=== PATIENT | male | born 1940 | race Caucasian/White ===

== ENCOUNTER 2016-10-24 22:49 | Inpatient (IN) | payer OTHER, MEDICARE ==
[~2016-10-24] VITALS: Ht 175.3 cm; Wt 99.4 kg
[~2016-10-24 22:49] MED LIST: ALPR0.5T99 PO; AMLO5TAB22 PO; ASPI81TA82 PO; ATOR80TA PO; CHOL1CAP6 PO; DICL75 PO; DOCU1CAP39 PO; HYDR10SO PO; PERC5TAB12 PO; SERT-129 PO; TAB-TAB PO; WAL-10TA2 PO
--- NOTE | 2016-10-24 23:13 | PD ---
HPI Chief Complaint: Neuro Symptoms/ Deficits Time Seen by Provider: 23:04 Travel History International Travel<30 days: No Contact w/Intl Traveler<30days: No Traveled to known affect area: No History of Present Illness HPI 75-year-old male was brought in by his for confusion. Patient started having confusion about 15 minutes prior to coming to the emergency room. Patient's states the patient started having coughing congestion since yesterday. Patient denies any headache. Patient denies any chest pain or shortness of breath. Patient denies abdominal pain. Patient denies any focal weakness and numbness of extremity. Patient was states the patient has generalized malaise and weakness this evening. Patient denies any nausea vomiting diarrhea. Patient denies any dysuria or frequency. Patient has history of hypertension, Parkinson disease. Patient has history of normal pressure hydrocephalus status post CLINICAL ACADEMIC ALLERGIST shunt placement. PFSH Past Medical History Arthritis: Yes (BACK) Asthma: No Autoimmune Disease: No Depression: Yes Cancer: No Cardiovascular Problems: No Chemotherapy: No COPD: No Cerebrovascular Accident: No Diabetes: No Diminished Hearing: No Endocrine: No Gastrointestinal Disorders: No GERD: No Genitourinary: No Headaches: No Hepatitis: No Hiatal Hernia: No Hypertension: No Immune Disorder: No Implanted Vascular Access Dvce: Yes Kidney Stones: No Musculoskeletal: Yes Neurologic: Yes (Hydocephuls ) Psychiatric: No Reproductive: No Respiratory: No Immunizations Current: Yes Migraines: No Radiation Therapy: No Renal Failure: No Seizures: No Sickle Cell Disease: No Sleep Apnea: No Thyroid Disease: No Triglycerides - High: Yes Ulcer: No Past Surgical History Abdominal Surgery: No AICD: No Arteriovenous Shunt: No Body Medical Devices: CLINICAL ACADEMIC ALLERGIST shunt placed Cardiac Surgery: No Ear Surgery: No Endocrine Surgery: No Eye Surgery: No Genitourinary Surgery: No Gynecologic Surgery: No Insulin Pump: No Joint Replacement: No Neurologic Surgery: No Oral Surgery: No Pacemaker: No Thoracic Surgery: No Other Surgery: Yes (R wrist and R knee ) Social History Alcohol Use: No Tobacco Use: No Substance Use: No Allergies-Medications (Allergen,Severity, Reaction): Coded Allergies: Codeine (Verified Allergy, Severe, ITCHING, 10/24/16) itching Reported Meds & Prescriptions Reported Meds & Active Scripts Active Diclofenac Sodium 75 Mg Tab 75 Mg PO BID PRN Percocet 5-325 mg (Oxycodone/Acetaminophen) 1 Tab 1 Tab PO Q6H PRN Hydrocodone/Acetaminophen 10 mg/325 mg 1 Tab Tab 1 Tab PO Q4H PRN Colace 100 Mg Cap (Docusate Sodium) 100 Mg Cap 100 Mg PO BID Reported Aspir-81 (Aspirin) 81 Mg Tab 81 Mg PO DAILY Atorvastatin 80 mg (Atorvastatin Calcium) 80 Mg Tab 80 Mg PO HS Loratadine 10 Mg Tab 10 Mg PO DAILY Vitamin D-3 (Cholecalciferol) 1,000 Unit Tab 5,000 Unit PO DAILY Multivitamin (Multivitamins) 1 Tab Tab 1 Tab PO DAILY@1600 Amlodipine Besylate 5 mg (Amlodipine Besylate) 5 Mg Tab 10 Tab PO DAILY Sertraline 100 mg (Sertraline HCl) 100 Mg Tab 150 Mg PO DAILY Xanax (Alprazolam) 0.5 Mg Tab 1 Mg PO HS Review of Systems General / Constitutional: Positive: Fever Eyes: No: Visual changes HENT: No: Headaches Cardiovascular: No: Chest Pain or Discomfort Respiratory: Positive: Cough, No: Shortness of Breath Gastrointestinal: No: Abdominal Pain Genitourinary: No: Dysuria Musculoskeletal: No: Pain Skin: No Rash Neurologic: No: Weakness Psychiatric: No: Depression Endocrine: No: Polydipsia Hematologic/Lymphatic: No: Easy Bruising Physical Exam Narrative GENERAL: Well-nourished, well-developed patient. SKIN: Warm and dry. HEAD: Normocephalic. CLINICAL ACADEMIC ALLERGIST shunt palpable right side the scalp. EYES: No scleral icterus. No injection or drainage. Pupil 2 mm equal reactive. NECK: Supple, trachea midline. No JVD or lymphadenopathy. CARDIOVASCULAR: Regular rate and rhythm without murmurs, gallops, or rubs. RESPIRATORY: Breath sounds equal bilaterally. No accessory muscle use. GASTROINTESTINAL: Abdomen soft, non-tender, nondistended. MUSCULOSKELETAL: No cyanosis, or edema. BACK: Nontender without obvious deformity. No CVA tenderness. Neurologic exam: Patient's lethargic. Patient knows his name. Patient does not know where he is or today's date. Patient moves all extremity well. No obvious focal neurological deficit. Data Data Last Documented VS Vital Signs Date Time Temp Pulse Resp B/P Pulse Ox O2 Delivery O2 Flow Rate FiO2 10/24/16 23:20 102.3 94 20 101/65 98 Orders Electrocardiogram (10/24/16 23:04) Complete Blood Count With Diff (10/24/16 23:04) Comprehensive Metabolic Panel (10/24/16 23:04) Creatine Kinase (Cpk) (10/24/16 23:04) Troponin I (10/24/16 23:04) Prothrombin Time / Inr (Pt) (10/24/16 23:04) Act Partial Throm Time (Ptt) (10/24/16 23:04) Blood Culture (10/24/16 23:) Urinalysis - C+S If Indicated (10/24/16 23:04) Thyroid Stimulating Hormone (10/24/16 23:04) Influenzae A/B Antigen (10/24/16 23:04) Chest, Single Ap (10/24/16 23:04) Ct Brain W/O Iv Contrast(Rout) (10/24/16 23:04) Iv Access Insert/Monitor (10/24/16 23:04) Ecg Monitoring (10/24/16:04) Oximetry (10/24/16 23:04) Urinary Catheter Insert/Apply (10/24/16 23:04) Lactic Acid (10/24/16 23:04) Sodium Chlor 0.9% 1000 Ml Inj (Ns 1000 M (10/24/16 23:15) Sodium Chlor 0.9% 1000 Ml Inj (Ns 1000 M (10/24/16 23:15) Piperacil-Tazo 3.375 Gm Premix (Zosyn 3. (10/24/16 23:15) Vancomycin Inj (Vancomycin Inj) (10/24/16 23:15) Acetaminophen (Tylenol) (10/24/16 23:30) Lactic Acid (10/24/16 23:55) Labs Laboratory Tests Test 10/24/16 23:10 White Blood Count 11.9 TH/MM3 Red Blood Count 4.65 MIL/MM3 Hemoglobin 13.9 GM/DL Hematocrit 40.7 % Mean Corpuscular Volume 87.6 FL Mean Corpuscular Hemoglobin 30.0 PG Mean Corpuscular Hemoglobin 34.3 % Concent Red Cell Distribution Width 12.5 % Platelet Count 261 TH/MM3 Mean Platelet Volume 8.5 FL Neutrophils (%) (Auto) 72.3 % Lymphocytes (%) (Auto) 12.6 % Monocytes (%) (Auto) 6.8 % Eosinophils (%) (Auto) 8.0 % Basophils (%) (Auto) 0.3 % Neutrophils # (Auto) 8.6 TH/MM3 Lymphocytes # (Auto) 1.5 TH/MM3 Monocytes # (Auto) 0.8 TH/MM3 Eosinophils # (Auto) 1.0 TH/MM3 Basophils # (Auto) 0.0 TH/MM3 CBC Comment DIFF FINAL Differential Comment Sodium Level 138 MEQ/L Potassium Level 4.1 MEQ/L Chloride Level 104 MEQ/L Carbon Dioxide Level 25.1 MEQ/L Anion Gap 9 MEQ/L Blood Urea Nitrogen 15 MG/DL Creatinine 1.10 MG/DL Estimat Glomerular Filtration 66 ML/MIN Rate Random Glucose 124 MG/DL Calcium Level 8.5 MG/DL Total Bilirubin 0.4 MG/DL Aspartate Amino Transf 9 U/L (AST/SGOT) Alanine Aminotransferase 23 U/L (ALT/SGPT) Total Protein 7.0 GM/DL Albumin 3.9 GM/DL MDM Medical Decision Making Medical Screen Exam Complete: Yes Emergency Medical Condition: Yes Medical Record Reviewed: Yes Interpretation(s) 12 PM. CBC WBC 11.9. 72 neutrophil. Differential Diagnosis Differential diagnosis including viral syndrome, sepsis, electrolyte imbalance, dehydration, TIA, CVA, shunt malfunction. Narrative Course 75-year-old male with fever and mental confusion. Patient has history of normal pressure hydrocephalus status post CLINICAL ACADEMIC ALLERGIST shunt placement. Normal saline solution 2 L IV bolus. Zosyn 3.375 g IV given. Vancomycin 1 g IV given. Diagnosis Primary Impression: Sepsis Qualified Code: A41.9 - Sepsis, due to unspecified organism Westley France MD Oct 24, 2016 23:13
[2016-10-24] MEDS ORDERED: VANCOMYCIN INJ 1,000 MG in SODIUM CHLOR 0.9% 250 ML INJ 250 ML IV ONE (23:15)
[2016-10-24] MEDS ORDERED: PIPERACIL-TAZO 3.375 GM PREMIX 50 ML IV ONE (23:15)
[2016-10-24] MEDS ORDERED: SODIUM CHLOR 0.9% 1000 ML INJ 1,000 ML IV ONE ×2 (23:15)
[2016-10-24 23:20] VITALS: BP 101/65; PULSE 94; RESP 20; TEMP 102.3; O2SAT 98
[2016-10-24 23:23] LABS: AUTOMATED NEUTROPHIL # 8.6 TH/MM3 (1.8-7.7); BASOPHIL % 0.3 % (0.0-2.0); HEMATOCRIT 40.7 % (39.0-51.0); HEMO FLAGS DIFF FINAL; LYMPH % 12.6 % (9.0-44.0); LYMPHOCYTE # 1.5 TH/MM3 (1.0-4.8); MEAN CELL VOLUME 87.6 FL (80.0-100.0); MEAN CORPUSCULAR HGB CONC 34.3 % (32.0-36.0); MONO % 6.8 % (0.0-8.0); NEUT % 72.3 % (16.0-70.0); PLATELET COUNT 261 TH/MM3 (150-450); RED BLOOD COUNT 4.65 MIL/MM3 (4.50-5.90); RED CELL DISTRIBUTION WIDTH 12.5 % (11.6-17.2); WHITE BLOOD COUNT 11.9 TH/MM3 (4.0-11.0)
[2016-10-24] MEDS ORDERED: ACETAMINOPHEN 325 MG TAB PO ONE (23:30)
[2016-10-24 23:36] LABS: CHLORIDE 104 MEQ/L (98-107); POTASSIUM 4.1 MEQ/L (3.5-5.1); SODIUM (NA) 138 MEQ/L (136-145)
[2016-10-24 23:39] LABS: ANION GAP 9 MEQ/L (5-15); BICARBONATE 25.1 MEQ/L (21.0-32.0); BLOOD UREA NITROGEN 15 MG/DL (7-18)
[2016-10-24 23:42] LABS: ALT (GPT) 23 U/L (12-78); AST (GOT) 9 U/L (15-37); GLOMERULAR FILTRATION RATE 66 ML/MIN (>89)
[2016-10-24 23:44] LABS: TOTAL BILIRUBIN ADULT 0.4 MG/DL (0.2-1.0)
[2016-10-24 23:45] LABS: ALKALINE PHOSPHATASE 104 U/L (45-117)
[2016-10-25] VITALS (14 sets, daily range): BP systolic 114–162; BP diastolic 68–89; PULSE 73–99; RESP 20–22; TEMP 97.7–99; O2SAT 91–98
[2016-10-25 00:01] LABS: APTT (PATIENT) 29.9 SEC (24.3-30.1); PROTHROMBIN TIME - PATIENT 10.6 SEC (9.8-11.6)
[2016-10-25 00:10] LABS: CREATINE KINASE 76 U/L (39-308)
--- NOTE | 2016-10-25 00:31 | RADHPO ---
EXAM DATE/TIME: 10/24/2016 23:45 [facility] COMPARISON: No previous studies available for comparison. INDICATIONS : Cough and congestion. MEDICAL HISTORY : Cerebrovascular disease. Parkinsons disease. SURGICAL HISTORY : MANAGER FINE DINING shunt ENCOUNTER: Initial ACUITY: 1 day PAIN SCORE: 7/10 LOCATION: Bilateral chest FINDINGS: Single AP view of the chest. Ventriculoperitoneal catheter seen extending through the right side of t he chest. The lungs are clear. Cardiomediastinal silhouette within normal limits. No evidence of pleu ral effusion or pneumothorax. CONCLUSION: No acute cardiopulmonary disease identified. Law Reynolds MD on October 25, 2016 at 0:29 Board Certified Radiologist. This report was verified electronically.
--- NOTE | 2016-10-25 00:37 | RADHPO ---
EXAM DATE/TIME: 10/24/2016 23:39 [facility] COMPARISON: CT BRAIN W/O CONTRAST, October 20, 2014, 17:52. INDICATIONS : Altered mental status. RADIATION DOSE: 59 CTDIvol (mGy) MEDICAL HISTORY : Parkinson's. Cerebrovascular disease. SURGICAL HISTORY : LAB AIDE shunt. ENCOUNTER: Initial ACUITY: 1 day PAIN SCALE: 0/10 LOCATION: cranial TECHNIQUE: Multiple contiguous axial images were obtained of the head. Using automated exposure control and adj ustment of the mA and/or kV according to patient size, radiation dose was kept as low as reasonably a chievable to obtain optimal diagnostic quality images. FINDINGS: CEREBRUM: Right-sided ventriculostomy catheter in place with the tip in the right lateral ventricle. The ventri cles are mildly diffusely prominent but unchanged when compared to 10/20/2014. No evidence of midline s hift, mass lesion, hemorrhage or acute infarction. No extra-axial fluid collections are seen. Enceph alomalacia right temporal lobe unchanged. POSTERIOR FOSSA: The cerebellum and brainstem are intact. The 4th ventricle is midline. The cerebellopontine angle i s unremarkable. EXTRACRANIAL: Polyp or retention cyst in the right maxillary sinus. Diffuse opacification of the ethmoid sinuses. SKULL: The calvaria is intact. No evidence of skull fracture. CONCLUSION: 1. Right-sided ventriculostomy catheter remains in place. Ventricles unchanged in size. 2. Ethmoid sinus disease and right sided maxillary sinus polyp or retention cyst. 3. 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 Law Reynolds MD on October 25, 2016 at 0:32 Board Certified Radiologist. This report was verified electronically.
[2016-10-25 01:26] LABS: BLOOD, URINE SMALL (NEG); GLUCOSE,URINE NEG (NEG); KETONE, URINE NEG (NEG); NITRITE,URINE NEG (NEG)
[2016-10-25 01:39] LABS: URINE COLOR YELLOW (YELLW/STRAW)
[2016-10-25 01:41] LABS: MUCUS URINE OCC /lpf (OCC); SQUAMOUS EPITHELIAL CELL URINE 0-5 /hpf (0-5); WBC, URINE 0-2 /hpf (0-5)
[2016-10-25 01:42] LABS: COMMENT (UR) CULT NOT INDICATED; CULTURE IF INDICATED CULT NOT INDICATED
[2016-10-25] MEDS ORDERED: ATOR1TAB18 PO (01:45)
[2016-10-25] MEDS ORDERED: TIZA4CAP3 PO (01:45)
[2016-10-25] MEDS ORDERED: SERT-129 PO (01:45)
[2016-10-25] MEDS ORDERED: ASPI81CH CHEW (01:45)
[2016-10-25] MEDS ORDERED: MUCI600T PO (01:45)
[2016-10-25] MEDS ORDERED: AMLO10TA2 PO (01:45)
[2016-10-25] MEDS ORDERED: VITA500030 CHEW (01:45)
[2016-10-25] MEDS ORDERED: ALPR0.5T3 PO (01:45)
[2016-10-25] MEDS ORDERED: LEVOTAB PO (01:45)
[2016-10-25] MEDS ORDERED: HYDR-3583 PO (01:45)
[2016-10-25] MEDS ORDERED: ENOXAPARIN SODIUM 100 MG/ML SYRINGE SQ ONE (02:15)
[2016-10-25] MEDS ORDERED: MAGNESIUM HYDROXIDE SUSP 30 ML CUP PO PRN (03:15)
[2016-10-25] MEDS ORDERED: NALOXONE HCL 0.4 MG/ML AMP IV PRN (03:15)
[2016-10-25] MEDS ORDERED: ACETAMINOPHEN 325 MG TAB PO PRN (03:15)
[2016-10-25] MEDS ORDERED: ONDANSETRON HCL 4 MG/2 ML VIAL IVP PRN (03:15)
[2016-10-25] MEDS: SODIUM CHLOR 0.9% 1000 ML INJ 1,000 ML IV SCH ×2 (03:47→17:21)
[2016-10-25] MEDS: SERTRALINE HCL 100 MG TAB PO SCH (08:40)
[2016-10-25] MEDS: ASPIRIN 81 MG CHEW TAB CHEW SCH (08:40)
--- NOTE | 2016-10-25 13:17 | HHI.HP ---
[facility] Service [place] [facility] Primary Care Physician Phyllis Morales Do, MD Admission Diagnosis Febrile Illness, AMS, NSTEMI Diagnoses: (1) Sepsis Diagnosis: Principal (2) Altered mental status Diagnosis: Principal (3) Elevated troponin I level Diagnosis: Principal Chief Complaint: confusion Travel History International Travel<30 Days: No Contact w/Intl Traveler <30 Da: No Traveled to Known Affected Are: No Sepsis Criteria SIRS Criteria (2 or more): Temp > 100.9 or < 96.8, Heart rate over 90, RR > 20 or PaCO2 < 32 Criteria Outcome: Meets SIRS criteria History of Present Illness 75-year-old male with history of hydrocephalus, hypertension, hyperlipidemia, depression and anxiety, and arthritis presents with complaint of confusion. Patient states he was confused last night and he thought he overmedicated himself. He takes hydrocodone and Xanax but tells me he only took one tablet of each. When I asked the patient why he thought he overmedicated, he stated because he had not eaten anything. Patient's confirmed with RN that the patient did not overmedicate. The patient does admit to a productive cough he has had for the last 4 days but states the sputum is clear. He denies any headache or dizziness, altered speech or focal weakness, or new visual changes. He denies any fevers or chills, ear ache, sore throat, neck or back pain, rashes, chest pain, shortness of breath, abdominal pain, nausea, vomiting or diarrhea. He denies any dysuria or hematuria although there's pink urine in the urinal at bedside likely from traumatic Bray which has since been removed. Patient denies having hematuria prior to arrival. Review of Systems Constitutional: DENIES: Fever, Chills, Dizziness Eyes: DENIES: Blurred vision Ears, nose, mouth, throat: DENIES: Throat pain, Ear Pain Respiratory: COMPLAINS OF: Cough, Sputum production, DENIES: Shortness of breath Cardiovascular: DENIES: Chest pain Gastrointestinal: DENIES: Abdominal pain, Diarrhea, Nausea, Vomiting Genitourinary: DENIES: Dysuria Musculoskeletal: DENIES: Back pain, Neck pain Integumentary: DENIES: Rash Neurologic: DENIES: Headache, Localized weakness, Speech Problems Psychiatric: COMPLAINS OF: Confusion Past Family Social History Past Medical History Hydrocephalus Hypertension Hyperlipidemia Arthritis spine Past Surgical History BOMBSIGHT SPECIALIST shunt placement 3 years ago Tendon surgery right wrist; surgery on finger Arthroscopic surgery right knee Reported Medications Tizanidine (Tizanidine HCl) 4 Mg Cap 4 Mg PO TID Vitamin D3 (Cholecalciferol) 5,000 Unit Chew 5,000 Units CHEW DAILY Mucinex ER 12 HR (Guaifenesin) 600 Mg Jami 600 Mg PO BID Levocetirizine 5 Mg Tab 5 Mg PO DAILY Sertraline (Sertraline HCl) 100 Mg Tab 100 Mg PO DAILY Hydrocodone-Acetaminophen 10-325 mg Tab 10 Tab PO Q6H PRN Atorvastatin (Atorvastatin Calcium) 80 Mg Tab 80 Mg PO HS Aspirin 81 Mg Chew 81 Mg CHEW DAILY Amlodipine (Amlodipine Besylate) 10 Mg Tab 10 Mg PO DAILY Alprazolam 0.5 Mg Tab 0.5 Mg PO HS PRN Allergies: Coded Allergies: Codeine (Verified Allergy, Severe, ITCHING, 10/24/16) itching Family History Mother: age 75 from [place]; brain cancer. Father: Cardiac bypass surgery, first at age 40, then again in his 60's. No siblings. Social History Denies current alcohol use but states he was a heavy drinker 30-40 years ago drinking a gallon per week. No current tobacco use. States he chewed tobacco 30+ years ago. Denies history of illicit drug use. Physical Exam Vital Signs Vital Signs Date Time Temp Pulse Resp B/P Pulse Ox O2 Delivery O2 Flow Rate FiO2 10/25/16 13:07 91 21 10/25/16 12:00 98.2 90 22 162/83 97 10/25/16 08:00 98.9 87 22 159/84 94 10/25/16 05:34 73 20 143/76 93 Nasal Cannula 2 10/25/16 05:06 97.7 10/25/16 04:00 97.9 74 20 156/89 98 10/25/16 03:45 76 20 134/83 98 10/25/16 02:15 99.0 74 20 114/80 98 10/25/16 01:21 93 Nasal Cannula 2.00 10/25/16 01:21 99.0 78 20 121/68 93 Nasal Cannula 2 10/25/16 01:10 20 98 10/25/16 00:15 78 20 123/68 98 10/24/16 23:20 102.3 94 20 101/65 98 Physical Exam GENERAL: This is a pleasant well-nourished, well-developed patient, in no apparent distress. SKIN: No rashes, ecchymoses or lesions. Warm and dry. HEAD: Atraumatic. Normocephalic. EYES: Pupils equal round and reactive. Extraocular motions intact. No scleral icterus. No injection or drainage. ENT: Uvula midline. Airway patent. NECK: Trachea midline. Full flexion, extension, and lateral ROM of the neck. No cervical spine tenderness. CARDIOVASCULAR: Regular rate and rhythm without murmurs, gallops, or rubs. RESPIRATORY: Clear to auscultation. Breath sounds equal bilaterally. No wheezes , rales, or rhonchi. GASTROINTESTINAL: Abdomen soft, non-tender, nondistended. No guarding. MUSCULOSKELETAL: No lower extremity edema bilaterally. BACK: No CVA tenderness bilaterally. NEUROLOGICAL: Awake, alert, and oriented. Cranial nerves II through XII intact. Motor and sensory grossly within normal limits. Five out of 5 muscle strength in bilateral arms and leg. Normal speech. Laboratory Laboratory Tests Test 10/24/16 10/24/16 10/25/16 10/25/16 23:10 23:55 00:33 05:25 White Blood Count 11.9 Red Blood Count 4.65 Hemoglobin 13.9 Hematocrit 40.7 Mean Corpuscular Volume 87.6 Mean Corpuscular Hemoglobin 30.0 Mean Corpuscular Hemoglobin 34.3 Concent Red Cell Distribution Width 12.5 Platelet Count 261 Mean Platelet Volume 8.5 Neutrophils (%) (Auto) 72.3 Lymphocytes (%) (Auto) 12.6 Monocytes (%) (Auto) 6.8 Eosinophils (%) (Auto) 8.0 Basophils (%) (Auto) 0.3 Neutrophils # (Auto) 8.6 Lymphocytes # (Auto) 1.5 Monocytes # (Auto) 0.8 Eosinophils # (Auto) 1.0 Basophils # (Auto) 0.0 CBC Comment DIFF FINAL Differential Comment Prothrombin Time 10.6 Prothromb Time International 1.0 Ratio Activated Partial 29.9 Thromboplast Time Sodium Level 138 Potassium Level 4.1 Chloride Level 104 Carbon Dioxide Level 25.1 Anion Gap 9 Blood Urea Nitrogen 15 Creatinine 1.10 Estimat Glomerular Filtration 66 Rate Random Glucose 124 Calcium Level 8.5 Total Bilirubin 0.4 Aspartate Amino Transf 9 (AST/SGOT) Alanine Aminotransferase 23 (ALT/SGPT) Alkaline Phosphatase 104 Total Creatine Kinase 76 69 Troponin I 0.26 0.25 Total Protein 7.0 Albumin 3.9 Thyroid Stimulating Hormone 0.563 3rd Gen Lactic Acid Level 1.5 Urine Color YELLOW Urine Turbidity CLEAR Urine pH 6.0 Urine Specific [place] 1.008 Urine Protein NEG Urine Glucose (UA) NEG Urine Ketones NEG Urine Occult Blood SMALL Urine Nitrite NEG Urine Bilirubin NEG Urine Leukocyte Esterase NEG Urine RBC 4-9 Urine WBC 0-2 Urine Squamous Epithelial 0-5 Cells Urine Mucus OCC Microscopic Urinalysis Comment CULT NOT INDICATED Test 10/25/16 11:00 Total Creatine Kinase 77 Troponin I 0.25 Date/Time Procedure Status Source Growth 10/24/16 23:30 Influenza Types A,B Antigen (PRITI) - Final Complete Nasal Washing NEGATIVE FOR FLU A AND B ANTIGEN.... 10/24/16 23:10 Aerobic Blood Culture - Preliminary Resulted Blood Peripheral NO GROWTH IN 1 DAY 10/24/16 23:10 Anaerobic Blood Culture - Preliminary Resulted Blood Peripheral NO GROWTH IN 1 DAY Result Diagram: 10/24/16 2310 10/24/16 2310 Assessment and Plan Problem List: (1) Sepsis ICD Code: A41.9 Status: Acute (2) Elevated troponin I level ICD Code: R74.8 Status: Acute (3) NPH (normal pressure hydrocephalus) ICD Code: G91.2 Status: Acute (4) Toxic metabolic encephalopathy ICD Code: G92 Status: Acute Assessment and Plan 75-year-old male with: Sepsis: Fever 102.3 rectal. Heart rate 94. Respiratory rate 22. Mild leucocytosis. Suspected source of infection is CSF infection in patient with shunt. Lactic acid is normal. Influenza negative. Chest x-ray personally interpreted without evidence of pneumonia. UA negative for infection. -Follow blood cultures. NGTD. -Patient received one dose of vancomycin and Zosyn in the ED. Antibiotics as below. -IVF -Telemetry Toxic, metabolic encephalopathy: Confusion last night although patient now oriented. Patient has hydrocephalus with BOMBSIGHT SPECIALIST shunt placed [address] brain personally interpreted with BOMBSIGHT SPECIALIST shunt; encephalomalacia R temporal lobe. -Will perform LP to evaluate for CSF infection. -Will start ceftriaxone 2 g every 12 hours and Acyclovir 10 mg/kg IV q8h to cover for bacterial meningitis and HSV encephalitis. Elevated troponin: 0.26-->0.25-->0.25. No report of chest pain or SOB. Cr normal. EKGs 2 personally interpreted with normal sinus rhythm and no evidence of ischemia. -Repeat EKG and troponin at 1700 hours -Echo -Lexiscan tomorrow am. NPO after midnight. -Hold aspirin for LP. HTN: Continue home amlodipine. -Enalapril prn SBP >160 DBP >90 HLD: Continue statin Anxiety/Depression: Continue Xanax as it is low dose once daily. Continue sertraline. Arthritis: Hold muscle relaxant and [place] so as not to sedate or alter patient. DVT prevention: Hold Lovenox for LP. TEDs/SCDs. Written by Velma Hays PA-C acting as scribe for Dr. Gama on 10/25/16 at ~ 1245. I, Dr. Eleuterio Gama personally performed the history, physical exam, and medical decision making; and confirmed the accuracy of the information in the transcribed note. Authenticated by Dr. Eleuterio Gama on 10/25/16 at 12:45PM. Code Status Full code Discussed Condition With patient Physician Certification 2 Midnight Certification Type: Admission for Inpatient Services Order for Inpatient Services The services are ordered in accordance with Medicare regulations or non- Medicare payer requirements, as applicable. In the case of services not specified as inpatient-only, they are appropriately provided as inpatient services in accordance with the 2-midnight benchmark. Estimated LOS (days): 2 days is the estimated time the patient will need to remain in the hospital, assuming treatment plan goals are met and no additional complications. Post-Hospital Plan: Home Problem Qualifiers (1) Sepsis: Qualified Code: A41.9 - Sepsis, due to unspecified organism Velma Hays Oct 25, 2016 13:17 Eleuterio Gama MD Oct 25, 2016 16:02
[2016-10-25] MEDS ORDERED: ENALAPRILAT 1.25 MG/ML VIAL IV PUSH PRN (14:00)
[2016-10-25] MEDS ORDERED: ENOXAPARIN SODIUM 100 MG/ML SYRINGE SQ SCH (14:00)
[2016-10-25] MEDS: cefTRIAXone INJ 2,000 MG in SODIUM CHLORIDE 0.9% INJ 100 ML IV SCH (14:18)
--- NOTE | 2016-10-25 14:59 | EKG ---
Date Performed: 10/24/2016 Time Performed: 23:11:26 PTAGE: 75 years EKG: Sinus rhythm Normal ECG Compared to prior tracing no significant change PREVIOUS TRACING : 02/19/2012 18.05 DOCTOR: Valerie Rodgers Interpretating Date/Time 10/25/2016 14:52:23
--- NOTE | 2016-10-25 14:59 | EKG ---
Date Performed: 10/25/2016 Time Performed: 05:24:10 PTAGE: 75 years EKG: Sinus rhythm with borderline 1st degree A-V block Borderline ECG Compared to prior tracing no significant change PREVIOUS TRACING : 10/24/2016 23.11 DOCTOR: Valerie Rodgers Interpretating Date/Time 10/25/2016 14:52:31
[2016-10-25] MEDS: ACYCLOVIR INJ 1,000 MG in SODIUM CHLORIDE 0.9% INJ 150 ML IV SCH ×2 (17:04→23:23)
[2016-10-25] MEDS: ATORVASTATIN 40 MG TAB PO SCH (20:48)
[2016-10-25] MEDS: ALPRAZolam 0.5 MG TAB PO PRN (23:25)
[2016-10-26] VITALS (9 sets, daily range): BP systolic 137–161; BP diastolic 83–90; PULSE 79–96; RESP 18; TEMP 95.7–99; O2SAT 91–96
[2016-10-26] MEDS: cefTRIAXone INJ 2,000 MG in SODIUM CHLORIDE 0.9% INJ 100 ML IV SCH ×2 (01:51→13:31)
[2016-10-26 06:15] LABS: AUTOMATED NEUTROPHIL # 5.6 TH/MM3 (1.8-7.7); BASOPHIL % 0.3 % (0.0-2.0); EOSINOPHIL # 0.3 TH/MM3 (0-0.4); EOSINOPHIL % 4.1 % (0.0-4.0); HEMATOCRIT 41.1 % (39.0-51.0); HEMO FLAGS DIFF FINAL; LYMPH % 18.6 % (9.0-44.0); LYMPHOCYTE # 1.6 TH/MM3 (1.0-4.8); MEAN CORPUSCULAR HEMOGLOBIN 29.4 PG (27.0-34.0); MEAN CORPUSCULAR HGB CONC 33.5 % (32.0-36.0); MONO % 10.4 % (0.0-8.0); NEUT % 66.6 % (16.0-70.0); PLATELET COUNT 249 TH/MM3 (150-450); RED BLOOD COUNT 4.67 MIL/MM3 (4.50-5.90); RED CELL DISTRIBUTION WIDTH 12.8 % (11.6-17.2); WHITE BLOOD COUNT 8.4 TH/MM3 (4.0-11.0)
[2016-10-26 06:33] LABS: BICARBONATE 25.4 MEQ/L (21.0-32.0); POTASSIUM 3.2 MEQ/L (3.5-5.1)
[2016-10-26] MEDS: SODIUM CHLOR 0.9% 1000 ML INJ 1,000 ML IV SCH ×2 (07:39→22:08)
[2016-10-26] MEDS: ASPIRIN 81 MG CHEW TAB CHEW SCH (08:15)
[2016-10-26] MEDS: ACYCLOVIR INJ 1,000 MG in SODIUM CHLORIDE 0.9% INJ 150 ML IV SCH ×2 (08:15→17:50)
[2016-10-26] MEDS: SERTRALINE HCL 100 MG TAB PO SCH (08:15)
--- NOTE | 2016-10-26 09:26 | HHI.PR ---
Subjective Remarks Follow-up sepsis/elevated troponin I/toxic metabolic encephalopathy 10/26/16-patient seen and examined, alert and oriented 2. Currently afebrile, nothing by mouth and no acute event overnight Objective Vitals Vital Signs Date Time Temp Pulse Resp B/P Pulse Ox O2 Delivery O2 Flow Rate FiO2 10/26/16 08:43 95.7 84 18 161/89 92 10/26/16 04:00 96.9 79 18 137/83 93 10/26/16 00:00 98.3 96 18 159/90 96 10/25/16 21:00 89 10/25/16 20:05 95 21 10/25/16 20:00 99.0 94 20 149/79 93 10/25/16 16:00 98.0 99 22 151/89 95 10/25/16 13:07 91 21 10/25/16 12:00 98.2 90 22 162/83 97 I/O 10/25/16 10/25/16 10/25/16 10/26/16 10/26/16 10/26/16 07:00 15:00 23:00 07:00 15:00 23:00 Intake Total 2350 ml 600 ml 680 ml 1020 ml Output Total 2200 ml 1550 ml 500 ml Balance 150 ml -950 ml 680 ml 520 ml Intake Oral 600 ml 680 ml 120 ml IV Total 2350 ml 900 ml Output Urine Total 2200 ml 1550 ml 500 ml # Voids 3 # Bowel Movements 1 1 Result Diagram: 10/26/16 0509 10/26/16 0509 Objective Remarks GENERAL: NAD SKIN: Warm and dry. HEAD: Normocephalic. EYES: No scleral icterus. No injection or drainage. NECK: Supple, trachea midline. No JVD or lymphadenopathy. CARDIOVASCULAR: Regular rate and rhythm without murmurs, gallops, or rubs. RESPIRATORY: Breath sounds equal bilaterally. No accessory muscle use. GASTROINTESTINAL: Abdomen soft, non-tender, nondistended. MUSCULOSKELETAL: No cyanosis, or edema. BACK: Nontender without obvious deformity. No CVA tenderness. A/P Problem List: (1) Sepsis ICD Code: A41.9 Status: Acute (2) Elevated troponin I level ICD Code: R74.8 Status: Acute (3) NPH (normal pressure hydrocephalus) ICD Code: G91.2 Status: Acute (4) Toxic metabolic encephalopathy ICD Code: G92 Status: Acute Assessment and Plan 75-year-old male with: Sepsis: Suspected source of infection is CSF infection in patient with shunt. Currently on Rocephin and acyclovir pending CSF and culture report Toxic, metabolic encephalopathy: Resolved. Patient has hydrocephalus with PERSONNEL ADVISER shunt placed [address] brain with PERSONNEL ADVISER shunt; encephalomalacia R temporal lobe. LP pending continue with current antibiotics including ceftriaxone 2 g every 12 hours and Acyclovir 10 mg/kg IV q8h to cover for bacterial meningitis and HSV encephalitis. Elevated troponin: 0.26-->0.25-->0.25. No report of chest pain or SOB. Cr normal. EKGs with normal sinus rhythm and no evidence of ischemia. Plan for Lexiscan today pending 2-D echo. Currently on statin. Continue to hold aspirin secondary to plan for LP HTN: Labile BP Continue home amlodipine and add hydralazine when necessary. HLD: Continue statin Anxiety/Depression: Continue Xanax and sertraline. Arthritis: Hold muscle relaxant and [place] DVT prevention: Hold Lovenox for LP. TEDs/SCDs. Problem Qualifiers (1) Sepsis: Qualified Code: A41.9 - Sepsis, due to unspecified organism Eleuterio Gama MD Oct 26, 2016 09:26
[2016-10-26] MEDS ORDERED: hydrALAZINE HCL 25 MG TAB PO PRN (09:30)
[2016-10-26] MEDS ORDERED: REGADENOSON INJ 0.4 MG/5 ML SYR IV ONE (09:53)
[2016-10-26] MEDS ORDERED: POTASSIUM CHLORIDE 10 MEQ CONTROLLED RELEASE TAB PO ONE (12:00)
--- NOTE | 2016-10-26 12:08 | RADHPO ---
EXAM DATE/TIME: 10/26/2016 10:24 [place] COMPARISON: No previous studies available for comparison. INDICATIONS : Confusion, coughing and weakness. Elevated troponins. Angina. DOSE: 31.1 mCi Tc99m Myoview at stress. 10.2 mCi Tc99m Myoview at rest. 0.4 mg Lexiscan STRESS SYMPTOMS: None noted. EJECTION FRACTION: > 70% MEDICAL HISTORY : Myocardial infarction. Hypercholesterolemia. Hypertension. Parkinson's disease. SURGICAL HISTORY : Brain stent. ENCOUNTER: Initial ACUITY: 1 day PAIN SCALE: 0/10 LOCATION: chest TECHNIQUE: The patient underwent pharmacologic stress with infusion of prescribed dose. Continuous ECG tracing was monitored during stress. Gated SPECT imaging was performed after stress and conventional SPECT i maging was performed at rest. The examination was performed on a SPECT/CT scanner, both attenuation and non-corrected datasets were reviewed. FINDINGS: DISTRIBUTION: The maximum perfused segment at stress is in the lateral wall. PERFUSION STUDY: There is decreased activity at the septum, inferior, and inferior lateral hagen at the base and mid v entricle on the stress images. The decreased activity is in the order of 20%. These changes seen on t he attenuated corrected images. There is some decreased activity on the stress images in the apical i nferior wall on the non-attenuated correction images. GATED STUDY: There is intact wall motion and thickening without hypokinetic or dyskinetic segments. CONCLUSION: Suspected areas of mild ischemia involving the basilar and mid portions of the septum, inferior, and inferolateral hagen. RISK CATEGORY: Intermediate (1-3% Annual Mortality Rate) Darryl Mcgovern MD on October 26, 2016 at 11:57 Board Certified Radiologist. This report was verified electronically.
--- NOTE | 2016-10-26 12:51 | EC ---
Study Study Date:10/26/2016 STUDY CONCLUSIONS SUMMARY - Left ventricle: The cavity size was normal. Wall thickness was normal. Systolic function was normal. The estimated ejection fraction was in the range of 55% to 60%. Wall motion was normal; there were no regional wall motion abnormalities. - Pulmonary arteries: PA peak pressure: 42mm Hg (S). If LV function is below 40, please consider prescribing an ACEI or ARB or document rationale for non-use. PROCEDURE DATA STUDY STATUS: Elective. Procedure: Transthoracic echocardiography. Image quality was good. Scanning was performed from the parasternal, apical, and subcostal acoustic windows. Study completion: The patient tolerated the procedure well. Transthoracic echocardiography. M-mode, complete 2D, complete spectral Doppler, and color Doppler. Patient status: Inpatient. CARDIAC ANATOMY LEFT VENTRICLE: The cavity size was normal. Wall thickness was normal. Systolic function was normal. The estimated ejection fraction was in the range of 55% to 60%. Wall motion was normal; there were no regional wall motion abnormalities. AORTIC VALVE: Trileaflet; normal thickness leaflets. Doppler: Transvalvular velocity was within the normal range. There was no stenosis. No regurgitation. AORTA: Aortic root: The aortic root was normal in size. MITRAL VALVE: Structurally normal valve. Doppler: Transvalvular velocity was within the normal range. There was no evidence for stenosis. Trace to mild regurgitation. LEFT ATRIUM: The atrium was normal in size. RIGHT VENTRICLE: The cavity size was normal. Wall thickness was normal. PULMONIC VALVE: Doppler: Transvalvular velocity was within the normal range. There was no evidence for stenosis. No regurgitation. TRICUSPID VALVE: Structurally normal valve. Doppler: Transvalvular velocity was within the normal range. Trace to mild regurgitation. PULMONARY ARTERY: The main pulmonary artery was normal-sized. Systolic pressure was within the normal range. RIGHT ATRIUM: The atrium was normal in size. PERICARDIUM: There was no pericardial effusion. SYSTEMIC VEINS: Inferior vena cava: The vessel was normal in size. BASIC MEASUREMENTS ADULT Normal Left ventricle LV internal dimension, ED, chordal level, 43.9 mm 43-52 PLAX LV internal dimension, ES, chordal level, 30.4 mm 23-38 PLAX Fractional shortening, chordal level, PLAX 31 % >29 LV posterior wall thickness, ED 8.02 mm IVS/LVPW ratio, ED *1.65 <1.3 Ventricular septum Septal thickness, ED 13.2 mm Aortic valve Leaflet separation 26 mm 15-26 Right ventricle RV internal dimension, ED, PLAX 29.8 mm 19-38 BASIC MEASUREMENTS ADULT Normal Aortic valve Leaflet separation 26 mm 15-26 Aorta Root diameter, ED 37 mm 20-37 Left atrium Anterior-posterior dimension, ES 36 mm 19-40 LA/aortic root ratio 0.97 DOPPLER MEASUREMENTS ADULT Normal Main pulmonary artery Pressure, S *42 mm Hg =30 Mitral valve Peak E-wave velocity 70.6 cm/s Peak A-wave velocity 101 cm/s Peak E/A ratio 0.7 Tricuspid valve Regurgitant peak velocity 282 cm/s Peak RV-RA gradient, S 32 mm Hg Maximal regurgitant velocity 282 cm/s Systemic veins Estimated CVP 10 mm Hg Right ventricle RV pressure, S *42 mm Hg <30 LEGEND: Mean values are shown as u=mean value. Asterisk (*) alvarez values outside specified normal range. Prepared and signed by Ernesto Cook [id number]
--- NOTE | 2016-10-26 14:59 | EKG ---
Date Performed: 10/25/2016 Time Performed: 16:59:24 PTAGE: 75 years EKG: Sinus rhythm . Compared to prior tracing no significant change Normal ECG PREVIOUS TRACING : 10/25/2016 05.24 DOCTOR: Odell Cifuentes Interpretating Date/Time 10/26/2016 14:56:29
[2016-10-26] MEDS: OXYMETAZOLINE HCL 0.05% 15 ML NASAL SPRAY NASAL SCH (19:39)
[2016-10-26] MEDS: ATORVASTATIN 40 MG TAB PO SCH (19:39)
[2016-10-26] MEDS: ALPRAZolam 0.5 MG TAB PO PRN (22:07)
[2016-10-27] VITALS: BP 135/89; PULSE 85; RESP 18; TEMP 97.2; O2SAT 98
[2016-10-27] MEDS: ACYCLOVIR INJ 1,000 MG in SODIUM CHLORIDE 0.9% INJ 150 ML IV SCH ×2 (00:53→07:44)
[2016-10-27] MEDS: cefTRIAXone INJ 2,000 MG in SODIUM CHLORIDE 0.9% INJ 100 ML IV SCH (02:29)
[2016-10-27 04:00] VITALS: BP 153/86; PULSE 86; RESP 19; TEMP 97.4; O2SAT 96
[2016-10-27] MEDS: OXYMETAZOLINE HCL 0.05% 15 ML NASAL SPRAY NASAL SCH (07:44)
[2016-10-27] MEDS: SODIUM CHLOR 0.9% 1000 ML INJ 1,000 ML IV SCH (07:45)
[2016-10-27] MEDS: SERTRALINE HCL 100 MG TAB PO SCH (07:45)
--- NOTE | 2016-10-27 08:05 | MB ---
cc: FERMIN GAITAN MD DATE OF CONSULTATION: 10/27/2016 REASON FOR CONSULTATION Elevated troponin and abnormal stress test. HISTORY OF PRESENT ILLNESS The patient is a very pleasant 75-year-old gentleman with a history of hydrocephalus, hypertension, hyperlipidemia, depression, anxiety, arthritis, as well as a MANAGER LOCATION shunt. He presented with altered mental status and fever with signs of sepsis. For an unclear reason cardiac enzymes were drawn in the emergency department which were mildly though flatly elevated and this resulted in him getting a nuclear stress test which was mildly abnormal. The patient's mental status had cleared and this morning he tells me that he has no cardiac history and no cardiac symptoms whatsoever. He has no history of chest pain, shortness of breath, lightheadedness, dizziness, syncope, palpitations. He is hoping to be discharged home. PAST MEDICAL HISTORY As above. MEDICATIONS Current medications: 1. Lipitor 80 mg q.h.s. 2. Acyclovir. 3. Ceftriaxone. 4. Amlodipine 10 mg daily. 5. Aspirin 81 mg daily. 6. Zoloft. ALLERGIES CODEINE. PHYSICAL EXAMINATION VITAL SIGNS: Afebrile, pulse 86, respiratory rate 19, BP 153/86, satting 96 on two liters. GENERAL: A very pleasant well-appearing gentleman in no distress. NECK: No JVD. LUNGS: Clear to auscultation bilaterally. CARDIOVASCULAR: Regular rate and rhythm. No murmurs appreciated. ABDOMEN: Benign. EXTREMITIES: No edema. LABORATORY DATA White count 8.4, hematocrit 41.1, platelets 249. Sodium 145, potassium 3.2, chloride 110, bicarb 25.4, BUN 13, creatinine 0.8, glucose 113. Cardiac enzymes are indeterminately mildly elevated at 0.25, 0.25, 0.23, with normal total CKs. EKG shows sinus rhythm with no acute ST or T-wave changes. Nuclear stress test was read as suspected areas of mild ischemia involving the basal mid septum, inferior and inferolateral hagen. IMPRESSION AND RECOMMENDATIONS Mildly abnormal cardiac findings as above. Unfortunately the patient had troponins drawn in the emergency department for which there was no clear indication which led us to getting a nuclear stress test which was also slightly abnormal without a clear indication. Clearly the patient did not have a myocardial infarction given no cardiac symptoms and a abnormal EKG. The flat pattern of his troponin is indicative of sepsis and not acute coronary syndrome. I discussed the patient's history at length and he denies any cardiac symptoms or history. Thus there is no indication for a cardiac catheterization at this time. We will medically manage any possible mild coronary disease that he has. I will see him in the office in 1-2 weeks. I will sign off at this time. Thank you again for the opportunity to participate in this patient's care. MD LYNDSEY Waters/OSIEL /7:29 AM /7:50 AM
[2016-10-27] MEDS: ASPIRIN 81 MG CHEW TAB CHEW SCH (09:00)
[2016-10-27 09:20] VITALS: BP 160/90; PULSE 96; RESP 18; TEMP 96.2; O2SAT 93
--- NOTE | 2016-10-27 09:46 | HHI.FF ---
Face to Face Verification Diagnosis: (1) Sepsis (2) Toxic metabolic encephalopathy (3) S/P LINING SCRUBBER shunt Home Health Nursing Order: Signs/symptoms of disease process I have seen patient Lopez Sanford on 10/27/16. My clinical findings support the need for the requested home health care services because: Deconditioned w/ increased weakness I certify that my clinical findings support that this patient is homebound because: Poor cardiac reserve Eleuterio Gama MD Oct 27, 2016 09:46
--- NOTE | 2016-10-27 09:49 | HHI.PR ---
Subjective Remarks Follow-up sepsis/elevated troponin I/toxic metabolic encephalopathy 10/26/16-patient seen and examined, alert and oriented 2. Currently afebrile, nothing by mouth and no acute event overnight 10/27/16-patient seen and examined, alert and oriented 3. Daughter by the bedside. Patient was seen by cardiology today and did not think there was any further need for workup for this patient despite positive nuclear stress test on 10/26/16. No acute event overnight. Objective Vitals Vital Signs Date Time Temp Pulse Resp B/P Pulse Ox O2 Delivery O2 Flow Rate FiO2 10/27/16 09:20 96.2 96 18 160/90 93 10/27/16 04:00 97.4 86 19 153/86 96 10/27/16 00:00 97.2 85 18 135/89 98 10/26/16 21:19 95 21 10/26/16 21:00 86 10/26/16 20:00 99.0 87 18 142/85 96 10/26/16 16:36 97.6 86 18 146/84 91 10/26/16 12:10 96.4 93 18 150/85 93 I/O 10/26/16 10/26/16 10/26/16 10/27/16 10/27/16 10/27/16 07:00 15:00 23:00 07:00 15:00 23:00 Intake Total 1020 ml 760 ml Output Total 500 ml 200 ml 900 ml Balance 520 ml 560 ml -900 ml Intake Oral 120 ml 760 ml IV Total 900 ml Output Urine Total 500 ml 200 ml 900 ml # Voids 6 # Bowel Movements 1 1 0 Result Diagram: 10/26/16 0509 10/26/16 0509 Imaging Last Impressions Myocardial Perfusion Scan Nuc Med 10/26/16 0700 Signed Impressions: Service Date/Time: Wednesday, October 26, 2016 10:24 - CONCLUSION: Suspected areas of mild ischemia involving the basilar and mid portions of the septum, inferior , and inferolateral hagen. RISK CATEGORY: Intermediate (1-3%% Annual Mortality Rate) Darryl Mcgovern MD Head CT 10/24/16 2143 Signed Impressions: Service Date/Time: Monday, October 24, 2016 23:39 - CONCLUSION: 1. Right-sided ventriculostomy catheter remains in place. Ventricles unchanged in size. 2. Ethmoid sinus disease and right sided maxillary sinus polyp or retention cyst. 3. 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 Law Reynolds MD Chest X-Ray 10/24/16 [id number] Signed Impressions: Service Date/Time: Monday, October 24, 2016 23:45 - CONCLUSION: No acute cardiopulmonary disease identified. Law Reynolds MD Objective Remarks GENERAL: NAD SKIN: Warm and dry. HEAD: Normocephalic. EYES: No scleral icterus. No injection or drainage. NECK: Supple, trachea midline. No JVD or lymphadenopathy. CARDIOVASCULAR: Regular rate and rhythm without murmurs, gallops, or rubs. RESPIRATORY: Breath sounds equal bilaterally. No accessory muscle use. GASTROINTESTINAL: Abdomen soft, non-tender, nondistended. MUSCULOSKELETAL: No cyanosis, or edema. BACK: Nontender without obvious deformity. No CVA tenderness. Procedures None A/P Problem List: (1) Sepsis ICD Code: A41.9 Status: Resolved (2) Elevated troponin I level ICD Code: R74.8 Status: Acute (3) NPH (normal pressure hydrocephalus) ICD Code: G91.2 Status: Chronic (4) Toxic metabolic encephalopathy ICD Code: G92 Status: Resolved Assessment and Plan 75-year-old male with: Sepsis: Resolved and patient currently on Rocephin and acyclovir which will discontinued Toxic, metabolic encephalopathy: Resolved. Patient has hydrocephalus with PERIANESTHESIA RN shunt placed [address] brain with PERIANESTHESIA RN shunt; encephalomalacia R temporal lobe. At this point there is no evidence of possible encephalitis therefore will discontinue LP ordered and all antibiotics. Elevated troponin: 0.26-->0.25-->0.25. No report of chest pain or SOB. Cr normal. EKGs with normal sinus rhythm and no evidence of ischemia. Nuclear stress test done 10/26/16 with finding of Suspected areas of mild ischemia involving the basilar and mid portions of the septum, inferior, and inferolateral hagen. Cardiology was consulted and saw patient on 10/27/16 however states Clearly the patient did not have a myocardial infarction given no cardiac symptoms and a abnormal EKG. HTN: Continue amlodipine and hydralazine when necessary. HLD: Continue statin Anxiety/Depression: Continue Xanax and sertraline. Arthritis: Hold muscle relaxant and [employer] DVT prevention: TEDs/SCDs. Problem Qualifiers (1) Sepsis: Qualified Code: A41.9 - Sepsis, due to unspecified organism Eleuterio Gama MD Oct 27, 2016 09:49
--- NOTE | 2016-10-27 09:54 | HHI.DS ---
Discharge Summary Admission Date Oct 25, 2016 at 02:14 Discharge Date: Oct 27, 2016 Admitting Diagnosis Febrile Illness, AMS, NSTEMI (1) Sepsis ICD Code: A41.9 (2) Elevated troponin I level ICD Code: R74.8 (3) NPH (normal pressure hydrocephalus) ICD Code: G91.2 (4) Toxic metabolic encephalopathy ICD Code: G92 Procedures None Brief History - From Admission 75-year-old male with history of hydrocephalus, hypertension, hyperlipidemia, depression and anxiety, and arthritis presents with complaint of confusion. Patient states he was confused last night and he thought he overmedicated himself. He takes hydrocodone and Xanax but tells me he only took one tablet of each. When I asked the patient why he thought he overmedicated, he stated because he had not eaten anything. Patient's confirmed with RN that the patient did not overmedicate. The patient does admit to a productive cough he has had for the last 4 days but states the sputum is clear. He denies any headache or dizziness, altered speech or focal weakness, or new visual changes. He denies any fevers or chills, ear ache, sore throat, neck or back pain, rashes, chest pain, shortness of breath, abdominal pain, nausea, vomiting or diarrhea. He denies any dysuria or hematuria although there's pink urine in the urinal at bedside likely from traumatic Bray which has since been removed. Patient denies having hematuria prior to arrival. CBC/BMP: 10/26/16 0509 10/26/16 0509 Significant Findings Laboratory Tests Test 10/24/16 10/25/16 10/25/16 10/25/16 23:10 00:33 05:25 11:00 White Blood Count 11.9 TH/MM3 (4.0-11.0) Neutrophils (%) (Auto) 72.3 % (16.0-70.0) Eosinophils (%) (Auto) 8.0 % (0.0-4.0) Neutrophils # (Auto) 8.6 TH/MM3 (1.8-7.7) Eosinophils # (Auto) 1.0 TH/MM3 (0-0.4) Estimat Glomerular Filtration 66 ML/MIN (>89) Rate Random Glucose 124 MG/DL (74-106) Aspartate Amino Transf 9 U/L (15-37) (AST/SGOT) Troponin I 0.26 NG/ML 0.25 NG/ML 0.25 NG/ML (0.02-0.05) (0.02-0.05) (0.02-0.05) Urine Occult Blood SMALL (NEG) Urine RBC 4-9 /hpf (0-3) Test 10/25/16 10/26/16 17:01 05:09 Troponin I 0.23 NG/ML (0.02-0.05) Monocytes (%) (Auto) 10.4 % (0.0-8.0) Eosinophils (%) (Auto) 4.1 % (0.0-4.0) Potassium Level 3.2 MEQ/L (3.5-5.1) Chloride Level 110 MEQ/L (98-107) Random Glucose 113 MG/DL (74-106) Calcium Level 8.3 MG/DL (8.5-10.1) Imaging Last Impressions Myocardial Perfusion Scan Nuc Med 10/26/16 0700 Signed Impressions: Service Date/Time: Wednesday, October 26, 2016 10:24 - CONCLUSION: Suspected areas of mild ischemia involving the basilar and mid portions of the septum, inferior , and inferolateral hagen. RISK CATEGORY: Intermediate (1-3%% Annual Mortality Rate) Darryl Mcgovern MD Head CT 10/24/162303 Signed Impressions: Service Date/Time: Monday, October 24, 2016 23:39 - CONCLUSION: 1. Right-sided ventriculostomy catheter remains in place. Ventricles unchanged in size. 2. Ethmoid sinus disease and right sided maxillary sinus polyp or retention cyst. 3. 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 Law Reynolds MD Chest X-Ray 10/24/[id number] Signed Impressions: Service Date/Time: Monday, October 24, 2016 23:45 - CONCLUSION: No acute cardiopulmonary disease identified. Law Reynolds MD PE at Discharge GENERAL: NAD SKIN: Warm and dry. HEAD: Normocephalic. EYES: No scleral icterus. No injection or drainage. NECK: Supple, trachea midline. No JVD or lymphadenopathy. CARDIOVASCULAR: Regular rate and rhythm without murmurs, gallops, or rubs. RESPIRATORY: Breath sounds equal bilaterally. No accessory muscle use. GASTROINTESTINAL: Abdomen soft, non-tender, nondistended. MUSCULOSKELETAL: No cyanosis, or edema. BACK: Nontender without obvious deformity. No CVA tenderness. Hospital Course Patient was admitted secondary to sepsis was started on Rocephin and acyclovir for suspected encephalitis to prior to discharge who antibiotics were discontinued as patient mentation improved and all cultures were negative. No LP was performed. Secondary to elevated troponin and nuclear stress test was performed on 10/26/16 with finding of suspected area of mild ischemia for which cardiology was consulted however he stated clearly patient did not have a myocardial infarction given no cardiac symptoms and no further workup was done. Patient was continued on treatment for hypertension and hyperlipidemia. DVT prophylaxis provided. Vital remained stable prior to discharge. Pt Condition on Discharge: Stable Discharge Disposition: Disch w/ Home Health Serv Discharge Time: > 30 minutes Discharge Instructions DIET: Follow Instructions for: Heart Healthy Diet Activities you can perform: Regular-No Restrictions Follow up Referrals: PCP Follow-up - 1 Week Continued Medications: Alprazolam (Alprazolam) 0.5 Mg Tab 0.5 MG PO HS PRN ANXIETY Ref 0 TAB Amlodipine (Amlodipine) 10 Mg Tab 10 MG PO DAILY Blood Pressure Management #30 Ref 0 TAB Aspirin (Aspirin) 81 Mg Chew 81 MG CHEW DAILY Ref 0 TAB Atorvastatin (Atorvastatin) 80 Mg Tab 80 MG PO HS Cholesterol Management #30 Ref 0 TAB Cholecalciferol (Vitamin D3) 5,000 Unit Chew 5000 UNITS CHEW DAILY Nutritional Supplement #1 Ref 0 BOTTLE Levocetirizine (Levocetirizine) 5 Mg Tab 5 MG PO DAILY Allergy Management #30 Ref 0 TAB Sertraline (Sertraline) 100 Mg Tab 100 MG PO DAILY #30 Ref 0 TAB Discontinued Medications: Guaifenesin ER 12 HR (Mucinex ER 12 HR) 600 Mg Jami 600 MG PO BID Chest Congestion/Cough Ref 0 TAB Hydrocodone-Acetaminophen (Hydrocodone-Acetaminophen) 10-325 mg Tab 10 TAB PO Q6H PRN PAIN Ref 0 TAB Tizanidine (Tizanidine) 4 Mg Cap 4 MG PO TID Muscle Spasm Ref 0 Eleuterio Alatorre MD Oct 27, 2016 09:53
== END 2016-10-27 11:05 | disposition home health service (06) | DRG 871 ==
LOC: PHED 22:49 → PHEDA 10-25 02:14 → PH3B 10-25 05:47
PROVIDERS: ADMIT Hospitalist; ATTEND Hospitalist
DX: A41.9 Sepsis, unspecified organism (principal); G92 Toxic encephalopathy; G91.2 (Idiopathic) normal pressure hydrocephalus; G93.89 Other specified disorders of brain; I10 Essential (primary) hypertension; E78.5 Hyperlipidemia, unspecified; F41.9 Anxiety disorder, unspecified; F32.9 Major depressive disorder, single episode, unspecified; M19.90 Unspecified osteoarthritis, unspecified site; Z98.2 Presence of cerebrospinal fluid drainage device; Z87.891 Personal history of nicotine dependence; Z88.5 Allergy status to narcotic agent
CPT/HCPCS: 51702; 70450; 71010; 78452; 80048; 80053; 81001; 82550; 83605; 84443; 84484; 85025; 85610; 85730; 87040; 87804; 93005; 93017; 93306; 96374; A9502; J0133; J0696; J1650; J2543; J2785; J3370; J7030; J7050